=== PATIENT | female | born 1985 | race African-American/Black ===

== ENCOUNTER 2020-12-31 16:15 | Emergency (ER) | payer OTHER ==
[2020-12-31 16:38] VITALS: BP 130/63; PULSE 77; TEMP 99.1; BMI 26.9
== END 2020-12-31 18:53 | disposition home or self-care (01) ==
LOC: FER 16:15
DX: R10.2 Pelvic and perineal pain (principal)
CPT/HCPCS: 76830-TC; 81003; 84703; 87086; 99284-25